=== PATIENT | male | born 1940 | race Caucasian/White ===

== ENCOUNTER 2017-01-02 11:45 | Emergency (ER) | payer OTHER ==
[~2017-01-02] VITALS: Ht 180.3 cm; Wt 56.7 kg
[~2017-01-02 11:45] MED LIST: ALBU2.5V5 NEB; CELE200C PO; CLOP75TA PO; DONE5TAB14 PO; ERGO500012 PO; FAMO20TA5 PO; FURO-69 PO; IPRA3AMP NEB; LISI10TA2 PO; PRED-220 PO; SULF1TAB24 PO; TAMS0.4C2 PO
[2017-01-02] MEDS ORDERED: IPRATRPIUM/ALBUTEROL 0.5/2.5MG 3 ML NEBU. NEB ONE (12:15)
[2017-01-02] MEDS ORDERED: DOCU-27 PO (13:01)
[2017-01-02] MEDS ORDERED: VENTOLIN HFA18 GM INH (13:01)
[2017-01-02 13:49] VITALS: BP 122/66
--- NOTE | 2017-01-02 14:07 | ED.ADGEN ---
Past Medical History Past Medical History: Cancer, COPD, Other Additional Past Medical Histor: HOME O2,LUNG CA,HOSPICE CARE Past Surgical History: Knee Replacement, Other Additional Past Surgical Histo: eye sx, L knee repl, HIP Additional Information: SMOKES 0.5 TO 1 CIGARETTE A DAY Alcohol Use: Occasionally Drug Use: None Adult General Chief Complaint Chief Complaint: SHORTNESS OF BREATH HPI HPI Patient is a 76 year old man, history of lung cancer, on hospice, COPD, constipation, who presents emergency department via EMS with a complaint of difficulty breathing. Patient states that he was having difficulty breathing at home, and was contacted by a member of the radiology team who was giving him radiation treatments, and was told to go to the emergency department for evaluation as he was complaining of shortness of breath. Patient received a nebulizer treatment en route to the ED, which he states helped significantly, he states he is feeling much better at this time. He is supposed to wear oxygen at home, but per EMS report, was not wearing oxygen when they found him, is currently at 6 L nasal cannula, oxygen saturation of 93%, heart rate is in the 80s. Patient denies any chest pain, any fevers or chills, any cough, any weakness emesis or tingling, any injuries. He complains of his chronic constipation, he states that he previously was taking medication for constipation, but he ran out and does not having more medication at home for constipation. He states that he is on hospice, and does not want to be admitted to the hospital, he does want to go back home, but is uncertain of how to manage his shortness of breath and constipation. He did not speak to the hospice staff prior to coming to the ED. Patient's son helps to care for him at home. He recently started on hospice. Review of Systems Review of Systems Constitutional: Denies fever or chills. [] Eyes: Denies change in visual acuity. [] HENT: Denies nasal congestion or sore throat. [] Respiratory: Denies cough, complaining of shortness of breath. Cardiovascular: Denies chest pain or edema. [] GI: Denies abdominal pain, nausea, vomiting, bloody stools or diarrhea. Constipation. [] : Denies dysuria. [] Musculoskeletal: Denies back pain or joint pain. [] Integument: Denies rash. [] Neurologic: Denies headache, focal weakness or sensory changes. [] Endocrine: Denies polyuria or polydipsia. [] Lymphatic: Denies swollen glands. [] Psychiatric: Denies depression or anxiety. [] Current Medications Current Medications Current Medications Medications (Trade) Dose Ordered Sig/Smita Start Time Stop Time Status Last Admin Dose Admin Albuterol/ Ipratropium (Duoneb) 3 ml 1X ONCE 01/02/17 12:15 01/02/17 12:16 DC 01/02/17 12:30 3 ML Allergies Allergies Allergies Coded Allergies Type Severity Reaction Last Updated Verified No Known Drug Allergies 12/20/16 No Physical Exam Physical Exam Constitutional: Well developed, well nourished, no acute distress, non-toxic appearance. [] HENT: Normocephalic, atraumatic, bilateral external ears normal, oropharynx moist, no oral exudates, nose normal. [] Eyes: PERRLA, EOMI, conjunctiva normal, no discharge. [] Neck: Normal range of motion, no tenderness, supple, no stridor. [] Cardiovascular:Heart rate regular rhythm, no murmur S1, S2, no rubs or gallops. [] Lungs & Thorax: Patient with diminished breath sounds at bases, mild scattered wheezing noted. No respiratory distress. Abdomen: Bowel sounds present in all 4 quadrants, soft, no tenderness, no masses , no pulsatile masses. [] Skin: Warm, dry, no erythema, no rash. [] Back: No tenderness, no CVA tenderness. [] Extremities: No tenderness, no cyanosis, no clubbing, ROM intact, no edema. Negative Homans sign. [] Neurologic: Alert and oriented X 3, normal motor function, normal sensory function, no focal deficits noted. [] Psychologic: Affect normal, judgement normal, mood normal. [] Current Patient Data Vital Signs Vital Signs Date Time Temp Pulse Resp B/P Pulse Ox O2 Delivery O2 Flow Rate FiO2 01/02/17 12:30 94 Nasal Cannula 6.0 01/02/17 11:45 97.2 86 28 115/66 97.2 EKG EKG Not indicated. [] Radiology/Procedures Radiology/Procedures Not indicated. [] Course & Med Decision Making Course & Med Decision Making Pertinent Labs and Imaging studies reviewed. (See chart for details) Patient resting comfortably after receiving DuoNeb in the emergency department, in addition to the DuoNeb he received en route. He states that his shortness of breath is significantly improved. He is on 6 L nasal cannula, he is supposed to wear oxygen at home, was not wearing his oxygen when EMS arrived. Patient acknowledges this fact. Patient is on hospice as stated, and he states that he does want to stay on hospice, has no interest in being admitted to the hospital , and would like to go home. We did contact the hospice service, and nurse Rod arrived in the emergency department to evaluate the patient. She states that the patient was started with her service about one week ago, and that the renal social worker has been very active and trying to stabilize the patient's home situation, as he currently is being cared for by his son, who has some cognitive delay. She states that there is also the patient's girlfriend in the home, who has dementia. However, she does believe that it would be safe for the patient to return home, they're in the process of stabilizing his medications, as it was unclear medications the patient was taking previously, but he will be able to have a home visit from nursing, to manage his medications and ensure that all is well in the home. I discussed this with the patient, he is very agreeable with this plan. Patient states that he received radiation treatment, and was contacted by the radiology nurse, who told him to come to the ED. It is unclear exactly who called him, when I did speak with the hospice nurse, she stated that the patient had finished 5 treatments of radiation were his lung cancer which or palliative in nature. Patient also discussed his chronic constipation, he states that he previously was taking a medication for constipation, but ran out, and does not have anymore home. Last bowel movement was yesterday, patient has a soft abdomen with active bowel sounds. I discussed use of Colace and the importance of staying well-hydrated with him. We did arrange for transportation via [facility] to transfer the patient back to his home, as there is no other transportation available from his family. Patient was given a prescription for Colace, to be used twice daily, along with a prescription for an albuterol inhaler to be used 2-4 puffs every 4 hours. Patient was agreeable to this plan as stated, we encouraged him to contact his hospice providers if he has any other questions or concerns, patient discharged with [facility] without issue. Jelena Disclaimer Kevinon Disclaimer This electronic medical record was generated, in whole or in part, using a voice recognition dictation system. Departure Impression: Primary Impression: Shortness of breath Additional Impressions: Constipation Lung cancer Disposition: HOME, SELF-CARE Condition: IMPROVED Scripts Albuterol Sulfate (Ventolin Hfa Inhaler)18 Gm Hfa.aer.ad2-4 Puff INH Q4HRS FOR ASTHMA #1 INHALER Ref 0 Prov:VALERIE LI DO 01/02/17 Docusate Sodium (Colace)100 Mg Capsule1 Cap PO BID #[id number] CAP Prov:VALERIE LI DO 01/02/17 Problem Qualifiers VALERIE LI DO Jan 02, 2017 14:07
== END 2017-01-02 15:14 | disposition home or self-care (01) ==
LOC: ER 11:45
DX: C34.90 Malignant neoplasm of unspecified part of unspecified bronchus or lung (principal); R06.02 Shortness of breath; K59.09 Other constipation; J44.9 Chronic obstructive pulmonary disease, unspecified; Z99.81 Dependence on supplemental oxygen; F17.210 Nicotine dependence, cigarettes, uncomplicated
CPT/HCPCS: 94640; 99284; J7620